=== PATIENT | female | born 1955 | race Caucasian/White ===

== ENCOUNTER 2024-11-24 08:48 | Outpatient (CLI) | payer MEDICARE, SELFPAY ==
--- NOTE | 2024-11-24 08:54 | CT_ITS ---
WS: [id number] LDCT LUNG CANCER SCREENING TECHNIQUE: Noncontrast CT of the chest with coronal and sagittal reformatted images. CLINICAL INFORMATION: HISTORY OF TOBACCO USE COMPARISON: None. DLP: 51.50 mGy.cm DIvol: Mean CTDIvol: 1.00 (mGy) All CT scans at [facility] use at least one of these dose optimization techniques: automat ed exposure control; mA and/or kV adjustment per patient size (includes targeted exams where dose is matched to clinical indication); or iterative reconstruction. FINDINGS: Pleural-based soft tissue mass RIGHT lower lobe along the diaphragm measuring 4.1 x 3.2 cm. Difficult to discern whether this is pleural-based or exophytic from the liver. Recommend further evaluation w ith contrast-enhanced CT chest and abdomen. 5 mm noncalcified nodule RIGHT upper lobe inferiorly along the fissure. Few smaller scattered nodules in the RIGHT upper lobe. Slightly irregular opacity RIGHT upper lobe measuring 5.4 mm. Slightly spic ulated opacity RIGHT upper lobe anteriorly measuring 5.3 mm. Noncalcified nodule LEFT upper lobe ante riorly measuring 5 mm. Irregular slightly spiculated opacity LEFT upper lobe laterally measuring 5.4 mm. Numerous bilateral pulmonary nodules and hazy opacities largest in the upper limits measuring approxi mately 5 mm. No prior comparisons. Moderate chronic emphysematous changes. Aortic calcification. Coronary calcification. No axillary lym phadenopathy. Cholecystectomy clips. Thickening of the LEFT adrenal gland. Small to moderate esophage al hiatal hernia. Mild thoracic curve. Mild thoracic kyphosis. CT/CT lung screening [id number] IMPRESSION: 1. Numerous bilateral subcentimeter pulmonary nodules and hazy opacities large st measuring 5 to 6 mm in the upper lobes. Recommend 6-month follow-up of these nodules. 2. Indeterminant pleural-based soft tissue mass RIGHT lower lobe. This may be exophytic from the liver or from the pleura. Recommend further evaluation with contrast-enhanced CT chest and abdomen. This measures approximately 4.1 x 3.2 c m. No comparisons. LUNG-RADS: 4B-Suspicious FOLLOW UP: See ReportRECOMMEND FURTHER EVALUATION OF THE RIGHT LOWER LOBE SOFT TISSUE MASS WITH CONTRAST-ENHANCED CT CHEST AND ABDOMEN.
== END 2024-11-24 08:49 | disposition home or self-care (01) ==
PROVIDERS: PCP Internal Medicine; Visit Provider Internal Medicine
DX: Z12.2 Encounter for screening for malignant neoplasm of respiratory organs (principal); Z87.891 Personal history of nicotine dependence; R91.8 Other nonspecific abnormal finding of lung field; J43.9 Emphysema, unspecified; I25.84 Coronary atherosclerosis due to calcified coronary lesion; I70.0 Atherosclerosis of aorta; Z90.49 Acquired absence of other specified parts of digestive tract; D35.02 Benign neoplasm of left adrenal gland; K44.9 Diaphragmatic hernia without obstruction or gangrene
CPT/HCPCS: 71271

== ENCOUNTER 2024-12-15 08:39 | Outpatient (CLI) | payer MEDICARE, SELFPAY ==
--- NOTE | 2024-12-15 08:46 | CTR_ITS ---
PROCEDURE INFORMATION: Exam: CT Chest Without and With Contrast; Diagnostic Exam date and time: 12/15/2024 10:10 AM Age: 69 years old Clinical indication: Abnormal findings; Abnormal radiologic finding of the abdomen; Radiologic exam and body structure: CT lung screen; Abnormal radiologic exam of lung or chest; Prior surgery; Surgery date: 6+ months; Surgery type: Gb, tubal, endometriosis; Additional info: Lung mass TECHNIQUE: Imaging protocol: Diagnostic computed tomography of the chest without and with contrast. Radiation optimization: All CT scans at this facility use at least one of these dose optimization techniques: automated exposure control; mA and/or kV adjustment per patient size (includes targeted exams where dose is matched to clinical indication); or iterative reconstruction. Contrast material: OMNI 350; Contrast volume: 100 ml; Contrast route: INTRAVENOUS (IV); COMPARISON: CT lung screening [id number] 11/24/2024 8:57 AM RADIATION DOSE METRICS: Total DLP (mGy-cm): 958.35 FINDINGS: Thyroid: Thyroid is normal. Lungs: Centrilobular emphysematous changes of the lungs. Stable appearance of multiple small pulmonary nodules, measuring up to 0.7 cm, better seen on recent CT chest 11/24/2024. No large focal consolidation. Pleural spaces: No pleural effusion. No pneumothorax. Heart: Heart is normal in size. No pericardial effusion. Lymph nodes: No distinct pathologically enlarged lymphadenopathy. Vasculature: Mild scattered calcific atheromatous disease of the thoracic aorta. Liver: The previously seen questionable mass, located at the anterior right lung base, is better seen on current study to represent a benign anatomic lobulation of the liver. Bones/joints: Mild multilevel spondylosis. No acute osseous findings. Soft tissues: Visualized superficial soft tissues are within normal limits. then CT Chest at 18-24 months. (Reference: Rachel) 2. The previously seen questionable mass, located at the anterior right lung base, is better seen on current study to represent a benign anatomic lobulation of the liver. COMMENTS: The presence of pulmonary emphysema on CT is an independent risk factor for lung cancer. In the absence of a history or active diagnosis of lung cancer, it is recommended that this patient with emphysema be evaluated for enrollment in a low dose CT lung cancer screening program. REFERENCES: Rachel Hannah, et al. Guidelines for Management of Incidental Pulmonary Nodules Detected on CT Images: From the Fleischner Society 2017. Radiology. 2017;284(1):228-243. PROCEDURE INFORMATION: Exam: CT Abdomen And Pelvis Without And With Contrast Exam date and time: 12/15/2024 10:10 AM Age: 69 years old Clinical indication: Abnormal findings; Abnormal radiologic finding of the abdomen; Radiologic exam and body structure: CT lung screen; Abnormal radiologic exam of lung or chest; Prior surgery; Surgery date: 6+ months; Surgery type: Gb, tubal, endometriosis; Additional info: Lung mass TECHNIQUE: Imaging protocol: Computed tomography of the abdomen and pelvis without and with contrast. Radiation optimization: All CT scans at this facility use at least one of these dose optimization techniques: automated exposure control; mA and/or kV adjustment per patient size (includes targeted exams where dose is matched to clinical indication); or iterative reconstruction. Contrast material: OMNI 350; Contrast volume: 100 ml; Contrast route: INTRAVENOUS (IV); COMPARISON: CT lung screening [id number] 11/24/2024 8:57 AM RADIATION DOSE METRICS: Total DLP (mGy-cm): 958.35 FINDINGS: Liver: The liver is unremarkable. Gallbladder and biliary ducts: Status post cholecystectomy. Pancreas: The pancreas is unremarkable. Spleen: The spleen is unremarkable. Adrenal glands: Right adrenal gland is normal in appearance. Mild nodularity of the left adrenal gland up to 1.6 cm. Kidneys and ureters: Kidneys are normal. No hydronephrosis or nephrolithiasis. Stomach and bowel: No evidence of bowel obstruction. Appendix: The appendix is normal. Intraperitoneal space: No significant free fluid in the abdomen or pelvis. No extraluminal free air. Vasculature: Moderate calcific atheromatous disease of the abdominal aorta and its major branches. No abdominal aortic aneurysm. Lymph nodes: No distinct pathologically enlarged lymphadenopathy. Urinary bladder: Urinary bladder is within normal limits. Reproductive: Visualized reproductive structures are within normal limits. Bones/joints: Multilevel spondylosis. No acute osseous findings. Soft tissues: Mild fatty atrophy of the lumbar paraspinal musculature. CT/CT abdpel wo/w [id number] IMPRESSION: 1. Stable appearance of multiple small pulmonary nodules, measuring up to 0.7 cm, better seen on recent CT chest 11/24/2024. Per Fleischner society guidelines, for patient's at low risk (minimal or absent history of smoking and of other known risk factors), recommend CT Chest at 3-6 months, then consider CT Chest at 18-24 months. For patients at high risk (history of smoking or of other known risk factors), recommend CT Chest at 3-6 months, IMPRESSION: Mild nodularity of the left adrenal gland up to 1.6 cm. In a patient with no cancer history, consider 12 month follow-up adrenal CT. (Reference: Alexia) REFERENCES: Alexia AVILES, et al. Management of Incidental Adrenal Masses: A White Paper of the ACR Incidental Findings Committee. J Am Beatrice Radiol. 2017;14(8):7549-9801.
[2024-12-15 10:12] LABS: Blood Urea Nitrogen 6 mg/dL (8-23); Glomerular Filtration Rate 82.7 mL/min (90-130)
[2024-12-15] MEDS: iohexol 350 mg/mL 500 mL Btl (per mL) PO (10:16)
[2024-12-15] MEDS: iohexol 350 mg/mL 500 mL Btl (per mL) IV (10:19)
== END 2024-12-15 08:40 | disposition home or self-care (01) ==
LOC: RAD 08:40
PROVIDERS: PCP Internal Medicine; Visit Provider Internal Medicine
DX: R91.8 Other nonspecific abnormal finding of lung field (principal); I70.0 Atherosclerosis of aorta; M47.9 Spondylosis, unspecified; R93.2 Abnormal findings on diagnostic imaging of liver and biliary tract
CPT/HCPCS: 71260; 74178; 82565; 84520